=== PATIENT | female | born 1945 | race Caucasian/White ===

== ENCOUNTER 2020-05-31 16:01 | Observation (INO) ==
[2020-05-31] MEDS ORDERED: Isovue-370 500 ML BOTTLE IVP ONE (16:17)
[2020-05-31] MEDS ORDERED: *HR* Metoprolol 5 MG/5 ML VIAL IVP ONE (16:17)
[2020-05-31] MEDS ORDERED: 0.9 % Sodium Chloride 1,000 ML IVC ONE (16:17)
[2020-05-31 16:34] LABS: Basophils % 0.4 %; Eosinophils % 0.2 %; Hematocrit 45.4 % (35.3-44.9); Hemoglobin 15.1 g/dL (11.5-15.4); Immature Granulocytes % 0.5 % (0-4); Lymphocytes # 1.6 K/mcL (0.6-4.6); Lymphocytes % 18.3 %; Mean Corpuscular HGB Conc 33.3 g/dL (31.6-35.5); Mean Corpuscular Hemoglobin 30.5 pg (28.0-33.3); Mean Corpuscular Volume 91.7 fL (83.0-100.0); Mean Platelet Volume 10.4 fL (9.4-12.4); Monocytes # 0.5 K/mcL (0.0-1.3); Monocytes % 5.4 %; Neutrophils # 6.4 K/mcL (1.6-8.9); Platelet Count 273 K/mcL (140-400); Red Blood Count 4.95 M/mcL (3.82-4.97); Red Cell Distribution Width 13.4 % (11.5-14.5); Segmented Neutrophils % 75.2 %; White Blood Count 8.6 K/mcL (4.3-11.1)
[2020-05-31 16:41] LABS: INR 1.1; Prothrombin Time 12.7 Seconds (9.4-12.1)
[2020-05-31 16:44] LABS: Activated Partial Thrombo Time 32.9 Seconds (26.0-36.0)
[2020-05-31 16:50] LABS: BUN/Creatinine Ratio 16 (6-26); Blood Urea Nitrogen 13 mg/dL (8-23); Calcium 9.2 mg/dL (8.6-10.3); Carbon Dioxide 23 mEq/L (23-29); Chloride 107 mEq/L (98-107); Glucose 131 mg/dL (70-105); Osmolality,Calculated 294 (280-300); Potassium 4.3 mEq/L (3.5-5.1); Sodium 141 mEq/L (136-145); Troponin I < 0.03 ng/mL (< 0.04); eGFR For African Americans > 60 (> 60); eGFR For Non-African Americans > 60 (> 60)
[2020-05-31] MEDS: Nitroglycerin 0.4 MG TAB.SUBL SL SCH (17:24)
[2020-05-31] MEDS ORDERED: Aspirin 81 MG TAB.CHEW PO ONE (17:55)
[2020-05-31] MEDS ORDERED: Perflutren Lipid Microsphere 1.3 ML in 0.9 % Sodium Chloride 8.7 ML IVP PRN (18:39)
[2020-05-31] MEDS ORDERED: Nitroglycerin 0.4 MG TAB.SUBL SL PRN (18:40)
[2020-05-31] MEDS ORDERED: Ondansetron 4 MG/2 ML VIAL IVP PRN (18:43)
[2020-05-31] MEDS ORDERED: Naloxone 0.4 MG/ML INJ IVP PRN (18:43)
[2020-05-31] MEDS: Nicotine 14 MG PATCH.TD24 TD SCH (19:33)
[2020-06-01 04:58] LABS: Hematocrit 39.4 % (35.3-44.9); Mean Corpuscular Hemoglobin 30.4 pg (28.0-33.3); Mean Corpuscular Volume 92.3 fL (83.0-100.0); Mean Platelet Volume 10.5 fL (9.4-12.4); Platelet Count 212 K/mcL (140-400); Red Blood Count 4.27 M/mcL (3.82-4.97); Red Cell Distribution Width 13.5 % (11.5-14.5); White Blood Count 5.5 K/mcL (4.3-11.1)
[2020-06-01 05:16] LABS: BUN/Creatinine Ratio 20 (6-26); Blood Urea Nitrogen 12 mg/dL (8-23); Calcium 8.5 mg/dL (8.6-10.3); Carbon Dioxide 22 mEq/L (23-29); Chloride 110 mEq/L (98-107); Chol/HDL Ratio 2.9 (0-4.9); Cholesterol 128 mg/dL (< 200); Glucose 100 mg/dL (70-105); HDL Cholesterol 44 mg/dL (40-59); LDL Cholesterol,Calculated 60 mg/dL (< 100); Osmolality,Calculated 288 (280-300); Potassium 3.8 mEq/L (3.5-5.1); Sodium 139 mEq/L (136-145); Triglycerides 119 mg/dL (< 150); eGFR For African Americans > 60 (> 60); eGFR For Non-African Americans > 60 (> 60)
[2020-06-01 05:17] LABS: Estimated Average Glucose 123 mg/dl; Hemoglobin A1C 5.9 %
[2020-06-01 05:29] LABS: Thyroid Stimulating Hormone 2.574 mcIU/mL (0.340-5.600)
[2020-06-01 05:40] LABS: Folate 13.3 ng/mL (3.0-16.0)
[2020-06-01] MEDS ORDERED: Regadenoson 0.4 MG/5 ML SYRINGE IVP ONE (06:43)
[2020-06-01] MEDS ORDERED: lisinopriL 5 MG TABLET PO SCH (09:00)
[2020-06-01] MEDS: Nicotine 14 MG PATCH.TD24 TD SCH (11:12)
[2020-06-01] MEDS: Aspirin Enteric Coated 81 MG Tablet PO SCH (11:12)
[2020-06-01] MEDS ORDERED: Cyanocobalamin (B-12) 1,000 MCG/ML VIAL SQ ONE (12:17)
[2020-06-02 06:29] LABS: Hematocrit 40.2 % (35.3-44.9); Hemoglobin 13.4 g/dL (11.5-15.4); Mean Corpuscular HGB Conc 33.3 g/dL (31.6-35.5); Mean Corpuscular Hemoglobin 30.5 pg (28.0-33.3); Mean Corpuscular Volume 91.4 fL (83.0-100.0); Mean Platelet Volume 10.3 fL (9.4-12.4); Platelet Count 213 K/mcL (140-400); Red Cell Distribution Width 13.4 % (11.5-14.5); White Blood Count 5.8 K/mcL (4.3-11.1)
[2020-06-02 06:50] LABS: BUN/Creatinine Ratio 15 (6-26); Blood Urea Nitrogen 9 mg/dL (8-23); Calcium 8.7 mg/dL (8.6-10.3); Carbon Dioxide 25 mEq/L (23-29); Chloride 106 mEq/L (98-107); Glucose 102 mg/dL (70-105); Osmolality,Calculated 285 (280-300); Potassium 3.6 mEq/L (3.5-5.1); Sodium 138 mEq/L (136-145); eGFR For African Americans > 60 (> 60); eGFR For Non-African Americans > 60 (> 60)
[2020-06-02] MEDS: Nicotine 14 MG PATCH.TD24 TD SCH (09:15)
[2020-06-02] MEDS: lisinopriL 10 MG TABLET PO SCH (09:15)
[2020-06-02] MEDS: Cyanocobalamin (B-12) 1,000 MCG TABLET PO SCH (09:15)
[2020-06-02] MEDS: Aspirin Enteric Coated 81 MG Tablet PO SCH (09:15)
[2020-06-03] MEDS: Cyanocobalamin (B-12) 1,000 MCG TABLET PO SCH (08:38)
[2020-06-03] MEDS: Nicotine 14 MG PATCH.TD24 TD SCH (08:38)
[2020-06-03] MEDS: Aspirin Enteric Coated 81 MG Tablet PO SCH (08:38)
[2020-06-03] MEDS: lisinopriL 10 MG TABLET PO SCH (08:38)
[2020-06-03 11:00] VITALS: BP 106/64
== END 2020-06-03 16:02 | disposition home or self-care (01) ==
LOC: EMEROOARM 16:01 → 3BNU 16:01 → SUATTDRO 17:59 → 3BNU 18:40
PROVIDERS: ADMIT Family Medicine; ATTEND Student in an Organized Health Care Education/Training Program